=== PATIENT | female | born 1940 ===

== ENCOUNTER 2022-05-03 12:53 | Emergency (ER) | payer MEDICARE, SELFPAY ==
[2022-05-03] VITALS (16 sets, daily range): BP systolic 163–175; BP diastolic 85–95; PULSE 83–103; RESP 11–31; TEMP 37.4; O2SAT 97–99
--- NOTE | 2022-05-03 13:18 | DI.RAD.S_ITS ---
PROCEDURE: XR CHEST 1V INDICATIONS: chest pain TECHNIQUE: One view of the chest was acquired. COMPARISON: None. FINDINGS: Surgical changes and devices: None. Lungs and pleura: Lungs are clear. No pleural effusions or pneumothorax. Mediastinum: Mediastinal contours appear normal. Heart size is normal. Bones and chest wall: No suspicious bony lesions. Overlying soft tissues appear unremarkable. IMPRESSION: No acute process. Dictated by: Ashleigh Crooks M.D. on 05/03/2022 at 14:03 Approved by: Ashleigh Crooks M.D. on 05/03/2022 at 14:04
[2022-05-03] MEDS: SODIUM CHLORIDE 0.9% 1,000 ML 150 ML IV (13:32)
[2022-05-03 13:39] LABS: Add Manual Diff / Slide Review NO; Basophils Absolute Auto 100 /uL (0-100); Basophils Percent Auto 1.1 % (0-2); Eosinophils Absolute Auto 0 /uL (0-450); Eosinophils Percent Auto 0.4 % (2-4); Hematocrit 43.6 % (36-46); Hemoglobin 13.8 g/dL (12.0-16.0); Lymphocytes Absolute Auto 1900 /uL (1100-4500); Mean Corpuscular HGB Conc 31.5 % (30-36); Mean Corpuscular Hemoglobin 25.7 PG (26-34); Mean Corpuscular Volume 81.4 fL (80-100); Monocytes Absolute Auto 400 /uL (0-900); Monocytes Percent Auto 6.2 % (3-14); Neutrophils Absolute Auto 3800 /uL (1500-7000); Neutrophils Percent Auto 61.3 % (50-75); Platelet Count 195 X10^3/uL (150-400); Red Blood Cell Count 5.36 X10^6/uL (4.0-5.2); Red Cell Distribution Width 16.9 % (11.6-14.8); White Blood Cell Count 6.2 X10^3/uL (4.5-11.0)
--- NOTE | 2022-05-03 13:45 | ED_ITS ---
HPI - Weakness General Chief complaint: Weakness Stated complaint: Dehydrated Time Seen by Provider: 05/03/22 13:17 Source: EMS Mode of arrival: EMS History of Present Illness HPI Narrative: Patient is a 82-year-old female who has severe dementia nonverbal since with her daughter whom is her primary caregiver at home. States that she is not eating or drinking very much. But she is still urinating she is concerned that she might be dehydrated. She is mostly wheelchair-bound. She is not had any change in mentation. She is concerned about a vaginal rash as well. Daughter thinks that she might be in some pain in her pelvis when she turns her but it is difficult tell. Patient is awake and alert. She sometimes follows commands. Related Data Previous Rx's Medication Instructions Recorded nitrofurantoin 100 mg PO Q12H 5 days #10 caps 05/03/22 monohydrate/macrocrystals 100 mg capsule (Macrobid) nystatin 100,000 unit/gram topical 1 applic topical BID #15 grams 05/03/22 cream Allergies Allergy/AdvReac Type Severity Reaction Status Date / Time Penicillins Allergy Intermediate Hives Verified 05/03/22 16:15 sulfamethoxazole Allergy Unknown Verified 05/03/22 16:16 [From Bactrim] trimethoprim [From Bactrim] Allergy Unknown Verified 05/03/22 16:16 losartan [From Cozaar] AdvReac Intermediate Verified 05/03/22 16:16 Review of Systems Review of Systems ROS Unobtainable: All systems reviewed & are unremarkable except as noted in HPI and below Exam Initial Vital Signs Initial Vital Signs: Vital Signs Pulse Rate 90 05/03/22 13:09 Respiratory Rate 21 05/03/22 13:09 Pulse Oximetry 97 05/03/22 13:09 GENERAL: Alert 82-year-old female sitting HEENT: Head atraumatic,EOMI, pupils reactive, face symmetric, moist mucous membranes CARDIOVASCULAR: Regular rate and rhythm without murmurs, rubs or gallops. RESPIRATORY: Breath sounds equal bilaterally, no wheezes rales or rhonchi. ABDOMEN: Soft, nontender. Normoactive bowel sounds all 4 quadrants. No guarding or rebound. EXTREMITIES: Normal range of motion, no clubbing or edema. Neurovascularly intact. Pelvis stable. No pain with internal external rotation of either leg. NEUROLOGICAL: Alert art supervisor strength equal bilaterally SKIN: Some redness and yeast like infection noted over transvaginal area Course Orders Ordered: ED Orders 05/03/22 13:18 XR chest 1V Stat EKG-12 Lead Stat 05/03/22 13:20 Complete Blood Count AUTO DIFF Stat Comprehensive Metabolic Panel Stat Lactate (Lactic Acid) Stat Lipase Stat Procalcitonin Stat Troponin & CK Cardiac Panel Stat 05/03/22 13:36 Covid-19 + FLU A/B + RSV - PCR Stat 05/03/22 16:20 XR pelvis 1-2V Stat 05/03/22 16:40 Urine Culture Stat Urine Microscopic Stat 05/03/22 18:01 Consult to [facility] - Doper Operator Stat Discontinued Medications Sodium Chloride (Normal Saline 0.9%) 1,000 mls @ 150 mls/hr IV CONT HUMBERTO Last Infusion: 05/03/22 17:25 Dose: 0 mls/hr Documented By: Infusion: 05/03/22 16:13 Dose: 1,000 mls/hr Documented By: Admin: 05/03/22 13:32 Dose: 150 mls/hr Documented By: BRITTANY Vital Signs Vital signs: Vital Signs - 8 hr 05/03/22 13:26 05/03/22 13:09 05/03/22 13:30 Temperature 99.3 F Pulse Rate 84 90 Respiratory Rate 18 21 Blood Pressure 166/95 H 167/88 H Pulse Oximetry 98 97 Oxygen Delivery Method Room Air 05/03/22 13:30 05/03/22 14:00 05/03/22 14:00 Temperature Pulse Rate 87 93 H Respiratory Rate 16 17 Blood Pressure 164/90 H Pulse Oximetry 98 98 Oxygen Delivery Method 05/03/22 14:30 05/03/22 14:30 05/03/22 15:00 Temperature Pulse Rate 83 Respiratory Rate 19 Blood Pressure 175/85 H 170/93 H Pulse Oximetry 98 Oxygen Delivery Method 05/03/22 15:00 05/03/22 15:30 05/03/22 15:30 Temperature Pulse Rate 85 88 Respiratory Rate 17 20 Blood Pressure 169/94 H Pulse Oximetry 98 98 Oxygen Delivery Method 05/03/22 16:00 05/03/22 16:00 05/03/22 16:30 Temperature Pulse Rate 87 Respiratory Rate 23 Blood Pressure 168/95 H 174/86 H Pulse Oximetry 98 Oxygen Delivery Method 05/03/22 16:30 05/03/22 17:00 05/03/22 17:30 Temperature Pulse Rate 95 H 86 103 H Respiratory Rate 31 H 17 18 Blood Pressure Pulse Oximetry 98 98 99 Oxygen Delivery Method 05/03/22 17:46 05/03/22 17:46 05/03/22 18:00 Temperature Pulse Rate 88 84 Respiratory Rate 16 17 Blood Pressure 163/92 H Pulse Oximetry 98 98 Oxygen Delivery Method 05/03/22 18:30 05/03/22 18:34 05/03/22 18:34 Temperature Pulse Rate 86 85 Respiratory Rate 11 L 14 Blood Pressure 174/95 H Pulse Oximetry 99 98 Oxygen Delivery Method 05/03/22 19:22 Temperature Pulse Rate 85 Respiratory Rate 16 Blood Pressure 174/95 H Pulse Oximetry 99 Oxygen Delivery Method Room Air MDM - Weakness Lab Data Result diagrams: 05/03/22 13:20 05/03/22 13:20 Labs: Lab Results 05/03/22 05/03/22 05/03/22 Range/Units 13:20 13:20 13:20 WBC 6.2 (4.5-11.0) X10^3/uL RBC 5.36 H (4.0-5.2) X10^6/uL Hgb 13.8 (12.0-16.0) g/dL Hct 43.6 (36-46) % MCV 81.4 (80-100) fL MCH 25.7 L (26-34) PG MCHC 31.5 (30-36) % RDW 16.9 H (11.6-14.8) % Plt Count 195 (150-400) X10^3/uL Neut % (Auto) 61.3 (50-75) % Lymph % (Auto) 31.0 (25-40) % Alpine % (Auto) 6.2 (3-14) % Eos % (Auto) 0.4 L (2-4) % Baso % (Auto) 1.1 (0-2) % Neut # (Auto) 3800 (7074-3182) /uL Lymph # (Auto) 1900 (2372-5913) /uL Alpine # (Auto) 400 (0-900) /uL Eos # (Auto) 0 (0-450) /uL Baso # (Auto) 100 (0-100) /uL Sodium (137-145) mmol/L Potassium (3.4-5.1) mmol/L Chloride (98-107) mmol/L Carbon Dioxide (22-32) mmol/L BUN (7-17) mg/dL Creatinine (0.52-1.04) mg/dL Estimated GFR (>60) mL/min BUN/Creatinine Ratio (6-22) Glucose (80-110) mg/dL Lactate 1.7 (0.7-2.1) mmol/L Calcium (8.4-10.2) mg/dL Total Bilirubin (0.2-1.3) mg/dL AST (14-36) IU/L ALT (<35) IU/L Alkaline Phosphatase (38-126) U/L Total Creatine Kinase (30-135) U/L CK-MB (CK-2) CK-MB (CK-2) Rel Index Troponin I (0.01-0.034) ng/mL Total Protein (6.3-8.2) g/dL Lipase (23-300) U/L Procalcitonin 0.10 (<0.5) ng/mL Urine RBC (0-5/HPF) Urine WBC (0-5/HPF) Ur Squamous Epith Cells (0-5/HPF) Urine Bacteria (None) Ur Culture Indicated? SARS-CoV-2 (PCR) (Negative) Influenza A (RT-PCR) (NEGATIVE) Influenza B (RT-PCR) (NEGATIVE) RSV (PCR) (Negative) 05/03/22 05/03/22 05/03/22 Range/Units 13:20 13:36 16:40 WBC (4.5-11.0) X10^3/uL RBC (4.0-5.2) X10^6/uL Hgb (12.0-16.0) g/dL Hct (36-46) % MCV (80-100) fL MCH (26-34) PG MCHC (30-36) % RDW (11.6-14.8) % Plt Count (150-400) X10^3/uL Neut % (Auto) (50-75) % Lymph % (Auto) (25-40) % Alpine % (Auto) (3-14) % Eos % (Auto) (2-4) % Baso % (Auto) (0-2) % Neut # (Auto) (7980-1985) /uL Lymph # (Auto) (5259-9823) /uL Alpine # (Auto) (0-900) /uL Eos # (Auto) (0-450) /uL Baso # (Auto) (0-100) /uL Sodium 139 (137-145) mmol/L Potassium 4.5 (3.4-5.1) mmol/L Chloride 104 (98-107) mmol/L Carbon Dioxide 26 (22-32) mmol/L BUN 31 H (7-17) mg/dL Creatinine 0.80 (0.52-1.04) mg/dL Estimated GFR > 60 (>60) mL/min BUN/Creatinine Ratio 38.8 H (6-22) Glucose 170 H (80-110) mg/dL Lactate (0.7-2.1) mmol/L Calcium 11.5 H (8.4-10.2) mg/dL Total Bilirubin 0.6 (0.2-1.3) mg/dL AST 30 (14-36) IU/L ALT 23 (<35) IU/L Alkaline Phosphatase 93 (38-126) U/L Total Creatine Kinase 52 (30-135) U/L CK-MB (CK-2) TNP CK-MB (CK-2) Rel Index TNP Troponin I < 0.012 (0.01-0.034) ng/mL Total Protein 7.9 (6.3-8.2) g/dL Lipase 153 (23-300) U/L Procalcitonin (<0.5) ng/mL Urine RBC None seen (0-5/HPF) Urine WBC 30-100/hpf H (0-5/HPF) Ur Squamous Epith Cells 1-5 /hpf (0-5/HPF) Urine Bacteria Many (>30) H (None) Ur Culture Indicated? Cult not indicated SARS-CoV-2 (PCR) Negative (Negative) Influenza A (RT-PCR) Flu a negative (NEGATIVE) Influenza B (RT-PCR) Flu b negative (NEGATIVE) RSV (PCR) Negative (Negative) Urine Dip Bedside Urine Glucose Negative Bedside Urine Bilirubin - Negative Bedside Urine Ketone - Negative Urine Specific [place] 1.020 Bedside Urine Occult Blood ++ Bedside Urine pH 6.0 Bedside Urine Protein +/- 15 Bedside Urine Urobilinogen - Negative Bedside Urine Nitrite - Negative Bedside Urine Leukocytes +++ 500 Esterase Imaging Data Chest x-ray: Radiologist Impression: Augusta Ponce MR#: [id number] : 1940 Acct:[id number] Age/Sex: 82 / F Date of Service: 05/03/22 Loc: ED Accession Number: [id number] ?? Procedure: XR chest 1V Ordering Provider: Angeles Holman D.O. PROCEDURE:? XR CHEST 1V ? INDICATIONS:? chest pain ? TECHNIQUE:? One view of the chest was acquired.? ? COMPARISON:? None. ? FINDINGS:? ? Surgical changes and devices:? None.? ? Lungs and pleura:? Lungs are clear.? No pleural effusions or pneumothorax.? ? Mediastinum:? Mediastinal contours appear normal.? Heart size is normal.? ? Bones and chest wall:? No suspicious bony lesions.? Overlying soft tissues appear unremarkable.? ? IMPRESSION:? No acute process. ? ? Dictated by: Aslheigh Crooks M.D. on 05/03/2022 at 14:03 ? ? Approved by: Ashleigh Crooks M.D. on 05/03/2022 at 14:0 ECG Data Interpretation: Normal sinus rhythm rate 80 UT interval 138 QRS [address] changes no T- wave inversions mild artifact noted, no priors to compare MDM Narrative Medical decision making narrative: Patient 82-year-old demented female who is nonverbal presents today with possible dehydration per daughter. Patient overall is awake alert seems happy in not in pain. Daughter was concerned about her pelvis. I am able to move her legs without any obvious pain. X-ray is negative. Blood work is overall reassuring. No significant sign of leukocytosis or sepsis. Creatinine BUN electrolytes are within normal limits. No obvious sign of severe dehydration. Nonetheless she is given a L of fluid. Daughter would like her to give some ibuprofen which she has with her. She does have mild UTI. Will start her on short course of antibiotic. At this time no need for hospitalization. [] Multiple etiologies for patient's symptoms considered including, but not limited to: Sepsis UTI Prior Charts reviewed: None available Labs reviewed and interpreted by myself: See above Imaging reviewed: Chest x-ray pelvis x-ray Consultations: None Patient's symptoms improved over duration of stay with above-stated therapies. Findings and discharge diagnosis discussed with patient/family followed by verbalization of understanding Return precautions discussed with patient/family whom verbalize understanding of diagnosis and plan Discharge Plan Departure Patient Disposition: Home Clinical Impression: Acute UTI, Yeast infection Instructions: DI for Urinary Tract Infection (UTI), Yeast Infection-Skin Activity Restrictions/Additional Instructions: *You have been diagnosed with UTI, yeast infections *What to do: Continue to hydrate and push fluids as tolerated. *Continue to take medications as directed Macrobid 100 mg twice a day for 5 days Nystatin cream apply to area to 2 3 times a day *Follow up with your primary care provider in 2-3 days or call [phone] *Return to ER if you should have increasing confusion decreased responsiveness or any new, worsening or concerning symptoms Prescriptions: New nystatin 100,000 unit/gram cream 1 applic topical BID Qty: 15 0RF nitrofurantoin monohyd/m-cryst [Macrobid] 100 mg capsule 100 mg PO Q12H 5 Days Qty: 10 0RF Rx Instructions: must administer with a meal/food Stand Alone Forms: Patient Portal/API
[2022-05-03 14:03] LABS: Alanine Aminotransferase 23 IU/L (<35); Alkaline Phosphatase 93 U/L (38-126); Aspartate Aminotransferase 30 IU/L (14-36); BUN Creatinine Ratio 38.8 (6-22); Bilirubin Total 0.6 mg/dL (0.2-1.3); Blood Urea Nitrogen 31 mg/dL (7-17); Calcium 11.5 mg/dL (8.4-10.2); Carbon Dioxide 26 mmol/L (22-32); Chloride 104 mmol/L (98-107); Creatine Kinase 52 U/L (30-135); Estimated Glomerular Filt Rate > 60 mL/min (>60); Glucose 170 mg/dL (80-110); Lactate (Lactic Acid) 1.7 mmol/L (0.7-2.1); Lipase 153 U/L (23-300); Potassium 4.5 mmol/L (3.4-5.1); Sodium 139 mmol/L (137-145); Total Protein 7.9 g/dL (6.3-8.2)
[2022-05-03 14:15] LABS: Troponin I < 0.012 ng/mL (0.01-0.034)
[2022-05-03 14:21] LABS: Influenza A - CEPHEID Flu A NEGATIVE (NEGATIVE); Influenza B - CEPHEID Flu B NEGATIVE (NEGATIVE); Respiratory Syncytial Virus Negative (Negative)
--- NOTE | 2022-05-03 15:23 | PC.NURSE ---
Pt is nonverbal with a history of dementia per EMS. EMS called by daughter due to dehydration. Pt is sitting upright in bed, eyes following this RN as she speaks, showing no signs of distress. Call light within reach. Encouraged to use for needs.
[2022-05-03 15:29] LABS: COVID-19 CEPHEID 4-PLEX PCR Negative (Negative)
--- NOTE | 2022-05-03 16:10 | PC.NURSE ---
Pt daughter at bedside and is caregiver for mom. She reports she needs fluids and has concerns for dehydration due to decreased fluid intake. Pt is only drinking 3 glasses of water per day plus some Popsicles per daughter. Pt daughter reports hx of frequent UTI's, stroke and dementia. Pt daughter also mentions mother has history of capsules on crotch that she noticed in 2017 and they continue. Provider aware. Verbal order change to bolus rest of NS.
--- NOTE | 2022-05-03 16:20 | DI.RAD.S_ITS ---
PROCEDURE: XR PELVIS 1-2V INDICATIONS: questionable pain TECHNIQUE: 1 view(s) of the pelvis acquired. COMPARISON: None. FINDINGS: Bones: No fractures or dislocations. No suspicious bony lesions. Soft tissues: Visualized bowel gas pattern is normal. No suspicious soft tissue calcifications. IMPRESSION: No acute fracture. No osseous lesion. If symptoms and/or clinical suspicion for pathology persist, further assessment with repeat, or advanced imaging (e.g., CT, MRI, or bone scan) may be helpful for further assessment. Dictated by: Ashleigh Crooks M.D. on 05/03/2022 at 16:52 Approved by: Ashleigh Crooks M.D. on 05/03/2022 at 16:52
--- NOTE | 2022-05-03 16:49 | PC.NURSE ---
While changing brief this RN noticed bruises to her right hip, pt also groaned with pain during turn. Provider aware.
[2022-05-03 17:08] LABS: Bacteria Urine Many (>30); WBC Urine 30-100/HPF (0-5/HPF)
[2022-05-03 17:09] LABS: Culture Indicated Urine Cult Not Indicated; RBC Urine None Seen (0-5/HPF); Squamous Epithelial Cell Urine 1-5 /HPF (0-5/HPF)
--- NOTE | 2022-05-03 18:23 | CM.SWNOTE ---
ED DCP/EGG CRATER Note Patient is 82 y/o female who presents to ED due to concern for dehydration via EMS. Per EMS, patient is non verbal at baseline, has hx of Dementia, stroke and kidney stones. Patient has current PCP, not listed. Patient has Medicaid and Medicare insurance. EGG CRATER enters room. Present is patient and patient's daughter who is patient's primary caregiver. EGG CRATER primarily speaks with patient's daughter as patient is non verbal. It is reported that patient is wheelchair/bed bound at baseline. It is reported that patient's daughter lives with patient and daughter asks for community assistance to transfer patient as needed. It is reported that patient had surgery in December and d/c'd with HH. Daughter request short term or moth exterminator care options for patient. EGG CRATER provides daughter with senior resource guide and explains the difference between respite, SNF rehab and assisted/residential living facility. EGG CRATER encourages daughter to call facilities and discuss options and to have patient f/u with PCP and request any neurology notes needed with patient's dx of Dementia. EGG CRATER also provides patient's daughter with DME resource list. Plan: patient to d/c to home with daughter upon medical clearance. Daughter to f/u with moth exterminator and respite care facilities. JODI Borja
[2022-05-04 20:17] LABS: Albumin 3.9 g/dL (3.5-5.0); HEMOLYSIS 19 (0-50)
== END 2022-05-03 19:00 | disposition home or self-care (01) ==
PROVIDERS: Emergency Provider Emergency Medicine
DX: N39.0 Urinary tract infection, site not specified (principal); B37.31 Acute candidiasis of vulva and vagina; R07.9 Chest pain, unspecified; F03.90 Unspecified dementia, unspecified severity, without behavioral disturbance, psychotic disturbance, mood disturbance, and anxiety; Z20.822 Contact with and (suspected) exposure to COVID-19
CPT/HCPCS: 0241U; 36415; 51701; 71045; 72170; 80053; 81003; 81015; 82550; 83605; 83690; 84145; 84484; 85025; 87077; 87086; 87186; 93005; 96360; 96361; 99284

== ENCOUNTER → 2022-08-17 12:55 | Outpatient (CLI) | payer MEDICARE, SELFPAY ==
--- NOTE | 2022-08-17 | DI.CT.S_ITS ---
PROCEDURE: CT KIDNEY URETER BLADDER (KUB) INDICATIONS: Calculus of kidney TECHNIQUE: Axial sections were acquired from the lung bases to the pubic symphysis. Coronal and sagittal reformats were performed. For radiation dose reduction, the following was used: automated exposure control, adjustment of mA and/or kV according to patient size. COMPARISON: Outside Film, CT, CT ABDOMEN RENAL PROTOCOL, 12/13/2021, 9:05. Outside Film, CT, CT ABDOMEN PELVIS WITH CONTRAST, 12/24/2021, 13:56. FINDINGS: Image quality: Excellent. Lung bases: Unremarkable. Heart: No significant findings. URINARY: Right Kidney: Multiple right-sided central and more peripheral mid kidney calculi are present, possibly staghorn calculi, with radiodensity of approximately 570-580 Hounsfield units. Obstructive influence is not seen. Right Ureter: No hydroureter. Left Kidney: The previously present left-sided double pigtail ureteral catheter has been removed, and previously present calculi within the collecting system of the left kidney have largely resolved. Several small posterior upper, middle 3rd and lower 3rd calculi remain, nonobstructive. Left Ureter: No hydroureter. Bladder: Normal wall thickness. There is a left-sided lateral small bladder calculus, which has an internal radiodensity of 576 Hounsfield units. This measures 4 x 6 mm. ABDOMEN: Liver: Unremarkable. Gallbladder: Previously resected Biliary ducts: Unremarkable. Pancreas: Unremarkable. Spleen: Unremarkable. Adrenal Glands: Unremarkable. Stomach and Bowel: Stomach, small bowel loops, and colon are unremarkable. Peritoneum: No abnormal intraperitoneal fluid. No free air. Ventral Wall: No hernia. Abdominal Nodes: No enlarged retroperitoneal or mesenteric lymph nodes. Vessels: Aorta and inferior vena cava are normal in size. PELVIS: Pelvic Organs: Unremarkable. Pelvic Nodes: Unremarkable. Miscellaneous: No inguinal hernias are seen. Bones: Unremarkable. IMPRESSION: A previously present left double pigtail ureteral stent is now absent. No left-sided hydronephrosis has redeveloped. Several small scattered calculi that are nonobstructive are seen within the left-sided renal collecting system. The number and size of calculi within the left renal collecting system has significantly improved. Unchanged multiple calculi which appear to not be producing significant hydronephrosis are noted within the right collecting system and no right-sided hydroureter is present. A 4 x 6 mm left-sided intraluminal bladder calculus appears present, nonobstructive. Dictated by: Finn Maldonado M.D. on 08/17/2022 at 15:43 Approved by: Finn Maldonado M.D. on 08/17/2022 at 15:52
[2022-08-17 18:58] LABS: Add Manual Diff / Slide Review NO; Basophils Absolute Auto 0 /uL (0-100); Basophils Percent Auto 0.8 % (0-2); Eosinophils Absolute Auto 100 /uL (0-450); Hematocrit 37.6 % (36-46); Hemoglobin 12.4 g/dL (12.0-16.0); Lymphocytes Absolute Auto 1800 /uL (1100-4500); Lymphocytes Percent Auto 44.8 % (25-40); Mean Corpuscular HGB Conc 32.9 % (30-36); Mean Corpuscular Hemoglobin 26.9 PG (26-34); Mean Corpuscular Volume 81.7 fL (80-100); Monocytes Absolute Auto 300 /uL (0-900); Monocytes Percent Auto 7.8 % (3-14); Neutrophils Absolute Auto 1800 /uL (1500-7000); Neutrophils Percent Auto 44.6 % (50-75); Platelet Count 130 X10^3/uL (150-400); Red Blood Cell Count 4.61 X10^6/uL (4.0-5.2); Red Cell Distribution Width 16.3 % (11.6-14.8); White Blood Cell Count 4.1 X10^3/uL (4.5-11.0)
[2022-08-18 05:35] LABS: Alanine Aminotransferase 15 IU/L (<35); Albumin 3.5 g/dL (3.5-5.0); Alkaline Phosphatase 78 U/L (38-126); Aspartate Aminotransferase 28 IU/L (14-36); BUN Creatinine Ratio 29.5 (6-22); Bilirubin Total 0.3 mg/dL (0.2-1.3); Blood Urea Nitrogen 23 mg/dL (7-17); Calcium 10.8 mg/dL (8.4-10.2); Carbon Dioxide 26 mmol/L (22-32); Chloride 107 mmol/L (98-107); Estimated Glomerular Filt Rate > 60 mL/min (>60); Globulin 3.6 g/dL (1.7-4.1); Glucose 95 mg/dL (80-110); HEMOLYSIS < 15 (0-50); Potassium 3.8 mmol/L (3.4-5.1); Sodium 139 mmol/L (137-145); Total Protein 7.1 g/dL (6.3-8.2)
[2022-08-18 06:50] LABS: Folate > 20.0 ng/mL (2.76-20.0); Vitamin B12 372 pg/mL (239-931)
== END ==
PROVIDERS: PCP Physician Assistant; Referring Provider Urology; Visit Provider Urology
DX: N20.0 Calculus of kidney (principal); N21.0 Calculus in bladder; R90.82 White matter disease, unspecified
CPT/HCPCS: 36415; 74176; 80053; 82607; 82746; 85025